=== PATIENT | female | born 1975 | race Hispanic/Latino ===

== ENCOUNTER 2018-12-09 16:01 | Emergency (ER) | payer OTHER, SELFPAY ==
[2018-12-09 16:29] LABS: #Eosinphils 0.1 thou/uL (0.0-0.7); #Lymphocytes 1.4 thou/uL (1.20-3.40); #Monocytes 0.4 thou/uL (0.11-0.59); #Neutrophils 6.8 thou/uL (1.40-6.50); %Basophils 0.5 % (0.0-1.0); %Eosinophils 0.9 % (0.0-10.0); %Lymphocytes 16.6 % (21.0-51.0); %Monocytes 4.1 % (0.0-10.0); %Neutrophils 77.8 % (42.0-75.0); Hemoglobin 12.6 g/dL (12.0-16.0); Mean Corpuscular Hemoglobin 29.4 pg (27.0-31.0); Mean Platelet Volume 8.5 fL (7.4-10.4); Platelet Count 194 thou/uL (130-400); RBC Distribution Width 13.4 % (11.5-14.5); Red Blood Cell (RBC) Count 4.28 mill/uL (4.20-5.40); White Blood Cell (WBC) Count 8.7 thou/uL (4.8-10.8)
[2018-12-09 16:51] LABS: ALT (SGPT) 14 U/L (8-55); AST (SGOT) 14 U/L (5-34); Albumin 4.3 g/dL (3.5-5.0); Alkaline Phosphatase 86 U/L (40-150); Anion Gap 15 mmol/L (10-20); BUN (Urea Nitrogen) 12 mg/dL (7.0-18.7); Bilirubin, Total 0.8 mg/dL (0.2-1.2); Calc. Creatinine Clearance 0 mL/min (70-130); Calcium 9.4 mg/dL (7.8-10.44); Carbon Dioxide 22 mmol/L (22-29); Chloride 103 mmol/L (98-107); Estimated GFR-MDRD 85; Globulin 2.7 g/dL (2.4-3.5); Glucose 122 mg/dL (70-105); Potassium 3.4 mmol/L (3.5-5.1); Sodium 137 mmol/L (136-145)
--- NOTE | 2018-12-09 16:55 | RAD ---
TWO VIEW CHEST: INDICATIONS: Weakness. Dizziness. Labile blood pressure. FINDINGS: There is no lobar consolidation, effusion, or pneumothorax. The cardiac silhouette is normal in size . IMPRESSION: No focal consolidation. POS: [facility]
[2018-12-09 17:28] LABS: Bilirubin Negative (Negative); Blood, Urine Large (Negative); Clarity CLOUDY (Clear); Glucose, Urine (Dipstick) Negative (Negative); Leukocyte Negative (Negative); Nitrite Negative (Negative); Protein, Urine (Dipstick) Negative (Neg-Trace); Specific Gravity, Urine 1.019 (1.002-1.036); pH, Urine 7.5 (5.0-9.0)
[2018-12-09 17:29] LABS: Pregnancy Test - Urine (BHCG) Negative (Negative); Pregu Control Background? CLEAR/WHITE (CLR/WHITE); Pregu Control Bar Appear? YES (CONTROL BAR); Specific Gravity 1.019 (1.002-1.036)
[2018-12-09 17:30] LABS: Bacteria/HPF None Seen HPF (None Seen); Hyaline Casts/LPF 0-3 HYALINE CAST LPF (0-3 Hyaline); Pathc Cast-AUWi Flag 0.54 (0-2.49); RBC/HPF GREATER THAN 50-TNTC HPF (0-3); Squamous Epithelial 0-3 HPF (0-3); WBC/HPF 0-3 HPF (0-3)
== END 2018-12-09 17:46 | disposition home or self-care (01) ==
LOC: ERS 16:01
DX: I95.9 Hypotension, unspecified (principal); R41.82 Altered mental status, unspecified
CPT/HCPCS: 36415; 71046; 80053; 81003; 81015; 81025; 84484; 85025; 93005; 94760

== ENCOUNTER 2020-09-21 18:00 | Outpatient (CLI) | payer BC | END 2020-09-21 18:01 | disposition home or self-care (01) | LOC: SLEEPLAB 18:00 | PROVIDERS: ATTEND Family Medicine | DX: G47.33 Obstructive sleep apnea (adult) (pediatric) (principal); R53.83 Other fatigue; G31.84 Mild cognitive impairment of uncertain or unknown etiology; R06.83 Snoring; G47.00 Insomnia, unspecified; R35.1 Nocturia | CPT/HCPCS: 95806 ==

== ENCOUNTER 2021-12-01 11:05 | Outpatient (CLI) | payer BC | END 2021-12-01 11:06 | disposition home or self-care (01) | LOC: BICMAMMO 11:05 | PROVIDERS: ATTEND Family Medicine | DX: Z12.31 Encounter for screening mammogram for malignant neoplasm of breast (principal) | CPT/HCPCS: 77063; 77067 ==

== ENCOUNTER 2022-09-17 21:06 | Emergency (ER) | payer BC ==
[~2022-09-17 21:06] MED LIST: ISOVUE-370 76%-LOCM 1 ML ONE
[2022-09-17] MEDS ORDERED: Ketorolac Tromethamine 30 MG/ML VIAL ONE (21:44)
[2022-09-17] MEDS ORDERED: Morphine 4 MG/ML VIAL ONE (21:44)
[2022-09-17] MEDS ORDERED: Ondansetron PF 4 MG/2 ML Vial ONE (21:45)
[2022-09-17 22:01] LABS: #Eosinphils 0.1 thou/uL (0.0-0.7); #Lymphocytes 2.6 thou/uL (1.20-3.40); #Monocytes 0.7 thou/uL (0.11-0.59); #Neutrophils 7.4 thou/uL (1.40-6.50); %Basophils 0.3 % (0.0-1.0); %Eosinophils 1.2 % (0.0-10.0); %Lymphocytes 24.1 % (21.0-51.0); %Monocytes 6.2 % (0.0-10.0); %Neutrophils 68.3 % (42.0-75.0); Hemoglobin 14.1 g/dL (12.0-16.0); Mean Corpuscular HGB CONC 33.9 g/dL (32.0-36.0); Mean Corpuscular Hemoglobin 31.8 pg (27.0-31.0); Mean Corpuscular Volume 93.7 fl (78.0-98.0); Mean Platelet Volume 9.1 fL (7.4-10.4); Platelet Count 203 10x3/uL (130-400); RBC Distribution Width 12.9 % (11.5-14.5); Red Blood Cell (RBC) Count 4.44 mill/uL (4.20-5.40); White Blood Cell (WBC) Count 10.9 10x3/uL (4.8-10.8)
[2022-09-17 22:17] LABS: ALT (SGPT) 16 U/L (8-55); AST (SGOT) 23 U/L (5-34); Albumin 4.3 g/dL (3.5-5.0); Alkaline Phosphatase 87 U/L (40-110); Anion Gap 16 mmol/L (10-20); BUN (Urea Nitrogen) 18 mg/dL (7.0-18.7); Bilirubin, Total 0.7 mg/dL (0.2-1.2); Calc. Creatinine Clearance 0 mL/min (70-130); Calcium 9.9 mg/dL (7.8-10.44); Carbon Dioxide 24 mmol/L (22-29); Chloride 103 mmol/L (98-107); Estimated GFR 94; Glucose 93 mg/dL (70-105); Lipase 33 U/L (8-78); Protein, Total 7.3 g/dL (6.0-8.3); Sodium 139 mmol/L (136-145)
[2022-09-18 00:07] LABS: Bacteria/HPF None Seen HPF (None Seen); Bilirubin Negative (Negative); Blood, Urine 1+ (Negative); Clarity Clear (Clear); Glucose, Urine (Dipstick) Normal (Negative); Ketone, Urine Negative (Negative); Leukocyte Negative Leu/uL (Negative); Nitrite Negative (Negative); Protein, Urine (Dipstick) Negative (Neg-Trace); RBC/HPF 0-3 HPF (0-3); Specific Gravity, Urine 1.012 (1.002-1.036); Squamous Epithelial 0-3 HPF (0-3); Urobilinogen Normal mg/dL (Less than 2); WBC/HPF 0-3 HPF (0-3)
== END 2022-09-18 00:58 | disposition home or self-care (01) ==
LOC: ERS 21:06
DX: R10.11 Right upper quadrant pain (principal); D72.829 Elevated white blood cell count, unspecified; I10 Essential (primary) hypertension; Z79.899 Other long term (current) drug therapy
CPT/HCPCS: 74177; 80053; 81003; 81015; 83690; 85025; 93005; 96374; 96375; J1885; J2270; J2405; Q9966

== ENCOUNTER 2022-09-18 18:07 | Observation (INO) | payer BC, OTHER ==
[~2022-09-18 18:07] MED LIST changes: -ISOVUE-370 76%-LOCM 1 ML ONE; +Iopamidol-370 76% 500 ML 1 ML ONE
[2022-09-18] MEDS ORDERED: Ketorolac Tromethamine 30 MG/ML VIAL ONE ×2 (18:37→22:25)
[2022-09-18] MEDS ORDERED: Ondansetron PF 4 MG/2 ML Vial ONE (18:37)
[2022-09-18 19:32] LABS: #Lymphocytes 1.1 thou/uL (1.20-3.40); #Monocytes 0.7 thou/uL (0.11-0.59); #Neutrophils 9.2 thou/uL (1.40-6.50); %Basophils 0.2 % (0.0-1.0); %Eosinophils 0.3 % (0.0-10.0); %Lymphocytes 10.1 % (21.0-51.0); %Monocytes 5.9 % (0.0-10.0); %Neutrophils 83.5 % (42.0-75.0); Hemoglobin 14.8 g/dL (12.0-16.0); Mean Corpuscular HGB CONC 32.9 g/dL (32.0-36.0); Mean Corpuscular Volume 94.4 fl (78.0-98.0); Mean Platelet Volume 9.8 fL (7.4-10.4); Platelet Count 189 10x3/uL (130-400); RBC Distribution Width 13.2 % (11.5-14.5); Red Blood Cell (RBC) Count 4.77 mill/uL (4.20-5.40)
[2022-09-18 20:50] LABS: Bacteria/HPF None Seen HPF (None Seen); Bilirubin Negative (Negative); Blood, Urine 3+ (Negative); Clarity Clear (Clear); Glucose, Urine (Dipstick) Normal (Negative); Ketone, Urine 20 mg/dL (Negative); Leukocyte 75 Leu/uL (Negative); Nitrite Negative (Negative); Protein, Urine (Dipstick) Negative (Neg-Trace); Specific Gravity, Urine 1.008 (1.002-1.036); Squamous Epithelial 0-3 HPF (0-3); Urobilinogen Normal mg/dL (Less than 2)
[2022-09-18 21:15] LABS: Albumin 3.7 g/dL (3.5-5.0)
[2022-09-18 21:16] LABS: Chloride 107 mmol/L (98-107); Potassium 3.6 mmol/L (3.5-5.1); Sodium 138 mmol/L (136-145)
[2022-09-18 21:18] LABS: Globulin 2.4 g/dL (2.4-3.5); Glucose 117 mg/dL (70-105); Protein, Total 6.1 g/dL (6.0-8.3)
[2022-09-18 21:19] LABS: Anion Gap 13 mmol/L (10-20); Carbon Dioxide 22 mmol/L (22-29)
[2022-09-18 21:21] LABS: Alkaline Phosphatase 81 U/L (40-110); Calc. Creatinine Clearance 0 mL/min (70-130); Estimated GFR 107
[2022-09-18 21:22] LABS: BUN (Urea Nitrogen) 9 mg/dL (7.0-18.7)
[2022-09-18 21:23] LABS: AST (SGOT) 15 U/L (5-34)
[2022-09-18 21:24] LABS: ALT (SGPT) 16 U/L (8-55); Lipase 19 U/L (8-78)
[2022-09-18 21:48] LABS: Calcium 8.1 mg/dL (7.8-10.44)
[2022-09-18 22:46] LABS: Lactic Acid 0.6 mmol/L (0.5-2.2)
[2022-09-18] MEDS ORDERED: Piperacillin/Tazobactam 4.5 GM VIAL ONE (23:10)
[2022-09-19] MEDS ORDERED: Bupivacaine HCl 0.5%/Epinephrine 1:200,000/PF 30 ml Vial ONE (01:01)
[2022-09-19] MEDS ORDERED: hydrALAZINE 20 MG/ML VIAL SLOW IVP PRN (01:02)
[2022-09-19] MEDS ORDERED: Ondansetron PF 4 MG/2 ML Vial IVP PRN (01:02)
[2022-09-19] MEDS ORDERED: Promethazine HCl 25 MG/ML VIAL IM PRN ×2 (01:02→02:14)
[2022-09-19] MEDS ORDERED: Acetaminophen 325 MG TAB PO PRN (01:02)
[2022-09-19] MEDS ORDERED: Morphine 2 MG/ML VIAL SLOW IVP PRN (01:02)
[2022-09-19] MEDS ORDERED: Ipratropium/Albuterol 3 ML NEB NEB PRN (01:02)
[2022-09-19] MEDS ORDERED: fentaNYL PF 100 MCG/2 ML SYRINGE ONE (01:03)
[2022-09-19] MEDS ORDERED: Promethazine HCl 25 MG/ML VIAL ONE (01:03)
[2022-09-19] MEDS ORDERED: PHENYLEPHRINE-NS 100 MCG/ML 10 ML SYRINGE ONE (01:28)
[2022-09-19] MEDS ORDERED: Lidocaine 1% PF 5 ML VIAL ONE (01:28)
[2022-09-19] MEDS ORDERED: Ondansetron PF 4 MG/2 ML Vial ONE (01:28)
[2022-09-19] MEDS ORDERED: Rocuronium Bromide 10 MG/ML (10ML VIAL) ONE (01:28)
[2022-09-19] MEDS ORDERED: Dexamethasone 20 MG/5 ML VIAL ONE (01:28)
[2022-09-19] MEDS ORDERED: PROPOFOL 200 MG/20 ML VIAL ONE (01:28)
[2022-09-19 01:35] VITALS: BMI 27.4
[2022-09-19] MEDS ORDERED: Ketorolac Tromethamine 30 MG/ML VIAL IVP SCH (02:00)
[2022-09-19 02:12] LABS: SARS-CoV-2 NAA Rapid Test Not Detected (NotDetected)
[2022-09-19] MEDS ORDERED: PACU-Morphine 4MG/ML VIAL SLOW IVP PRN (02:14)
[2022-09-19] MEDS ORDERED: Ondansetron HCl/PF 4 MG/2 ML Vial IVP PRN (02:14)
[2022-09-19] MEDS ORDERED: HYDROmorphone 2 MG/ML VIAL SLOW IVP PRN (02:14)
[2022-09-19] MEDS ORDERED: FENTANYL 50 MCG/ML 1 ML VIAL ONE (02:58)
[2022-09-19] MEDS ORDERED: Piperacillin/Tazobactam 3.375 GM in Sodium Chloride 0.9% 100 ML IVPB SCH (04:00)
[2022-09-19] MEDS ORDERED: Ibuprofen 600 MG TAB PO PRN (04:30)
[2022-09-19] MEDS: oxyCODONE 5 MG TAB PO PRN ×2 (05:18→14:05)
[2022-09-19] MEDS: Famotidine 20 MG TAB PO SCH ×2 (08:00→20:54)
[2022-09-19] MEDS: Famotidine/PF 20 mg/2ml Vial SLOW IVP SCH ×2 (08:03→20:52)
[2022-09-19] MEDS: Losartan 25 MG TAB PO SCH ×2 (08:03→08:39)
[2022-09-20 05:01] VITALS: TEMP 97.9
[2022-09-20] MEDS: Famotidine 20 MG TAB PO SCH (08:06)
[2022-09-20] MEDS: Famotidine/PF 20 mg/2ml Vial SLOW IVP SCH (08:06)
[2022-09-20] MEDS: Losartan 25 MG TAB PO SCH (08:39)
[2022-09-20 09:00] VITALS: BP 104/68
== END 2022-09-20 09:25 | disposition home or self-care (01) ==
LOC: ERS 18:07 → SJJU 23:41 → INTOOBSV 23:41
PROVIDERS: ADMIT Surgery; ATTEND Surgery
PROC: 0FT44ZZ Resection of Gallbladder, Percutaneous Endoscopic Approach (ICD-10-PCS; principal; 2022-09-20)
DX: K80.12 Calculus of gallbladder with acute and chronic cholecystitis without obstruction (principal); I10 Essential (primary) hypertension; Z79.899 Other long term (current) drug therapy; Z20.822 Contact with and (suspected) exposure to COVID-19
CPT/HCPCS: 36415; 74177; 80053; 81003; 83605; 83690; 85025; 88304; 96361; 96365; 96375; 96376; C1889; J1100; J1650; J1885; J2405; J2543; J2550; J2704; J3010; J3490; Q9967; U0002